=== PATIENT | male | born 1965 | race Caucasian/White ===

== ENCOUNTER 2024-04-19 08:50 | Emergency (ER) | payer OTHER, BC, SELFPAY ==
[2024-04-19] VITALS (47 sets, daily range): BP systolic 111–137; BP diastolic 60–95; PULSE 71–90; RESP 7–23; TEMP 36.4; O2SAT 91–100; BMI 36.6
--- NOTE | 2024-04-19 09:26 | ED_ITS ---
HPI - Dizziness 2 General: Chief Complaint: Dizziness Stated Complaint: dizzy,weakness Time Seen by Provider: 04/19/24 08:55 Source: patient Mode of arrival: ambulatory History of Present Illness: HPI Narrative: 58-year-old male who presents emergency room complaining of dizziness. Here patient is vertiginous-like symptoms worsen by when he moves his head. When initially evaluate the patient he is awake and alert no focal neurologic deficits. No difficulty with speech or swallowing or vision. He is also intermittently having some epistaxis. MD elicited complaint: dizziness Onset (ago): hour(s) (Approximately 10 hours ago) Timing: gradual onset Description: room spinning Context: change in body position Exacerbating factors: change in body position and other (Head movement) Relieving factors: nothing Associated symptoms: Denies change in hearing, chest pain, chills, cough, diaphoresis, ear discharge, ear pressure, fevers/chills, headache(s), malaise, nausea, nasal congestion, palpitations, rash, short of breath, syncope, tinnitus, vomiting or weakness Review of Systems 2 Const: Denies: chills, malaise or diaphoresis ENMT: Denies: ear discharge, change in hearing, tinnitus or nasal congestion Card: Denies: chest pain, palpitations or syncope Resp: Denies: dyspnea GI: Denies: nausea or vomiting : Denies: dysuria, urinary frequency or urinary urgency Musc: Denies: neck pain or back pain Skin/Breast: Denies: rash Neuro: Denies: headache(s) PFSH ED 2 PFSH: Medical History (Updated 04/19/24 @ 14:26 by Lauro Hernandez DO) Obesity (BMI 35.0-39.9 without comorbidity) DM type 2 (diabetes mellitus, type 2) HTN (hypertension) with goal to be determined Eustachian tube dysfunction Family History (Updated 05/02/23 @ 14:07 by Georgina Jackson LPN) Father No problems noted. Mother Diabetes Multiple sclerosis Social History (Updated 05/02/23 @ 14:08 by Georgina Jackson LPN) Smoking and tobacco/nicotine status: former use of tobacco/nicotine Quit status (tobacco/nicotine): has quit using Second hand smoke exposure: No Alcohol intake: current Alcohol intake frequency: holidays/special occasions only Substance/Drug Use: never Physical Exam 2 Const: COMMON NORMALS: no acute distress GENERAL APPEARANCE: cooperative and comfortable ORIENTATION/CONSCIOUSNESS: Yes awake, Yes oriented to person, Yes oriented to place and Yes oriented to time HENMT: COMMON NORMALS: normocephalic, atraumatic and hearing grossly normal bilaterally HEAD & SCALP: normocephalic and atraumatic Resp: COMMON NORMALS: normal respiratory effort, No retractions, No use of accessory muscles and clear to auscultation bilaterally AUSCULTATION: clear to auscultation bilaterally Cardio: COMMON NORMALS: regular rate, regular rhythm and No murmurs present (Cardio) RATE: regular rate RHYTHM: regular rhythm GI: COMMON NORMALS: Soft to palpation and No hepatosplenomegaly present A USCULTATION: Yes normoactive bowel sounds PALPATION: Yes Soft to palpation, No Tenderness to palpation present (GI), No Guarding due to palpation present (GI) and Yes No hepatosplenomegaly present Extremity: COMMON NORMALS: normal to inspection, capillary refill normal, no clubbing, cyanosis or edema, no calf tenderness and no pedal edema Neuro: SENSORIUM/ORIENTATION: Yes oriented to person, Yes oriented to place and Yes oriented to time Skin: COMMON NORMALS: no rashes or lesions noted GENERAL SKIN EXAM: no rashes or lesions noted Course 2 Vital Signs: Vital signs: Vital Signs Temperature 97.6 F 04/19/24 08:54 Pulse Rate 73 04/19/24 13:55 Respiratory Rate 10 L 04/19/24 13:55 Blood Pressure 132/69 04/19/24 13:55 Pulse Oximetry 94 04/19/24 13:55 Oxygen Delivery Me thod Room Air 04/19/24 13:35 MDM - Dizziness Medical Decision Making Patient presents emergency room complaining of dizziness with vertiginous-like symptoms it is worse when he moves his head and better when he holds still. He does have a little bit of nystagmus when he tries to focus on a single point. His neck score was 0. There is a new onset symptom for is also accompanied by some and intermittent epistaxis. He is not on any anticoagulants. When he was coming back from the CT I observed him in the hallway when the nurse turned the corner with the wheelchair to get him into the room it precipitated significant vertiginous symptoms. He had significant improvement after a single milligram of Ativan he is now able to move his head without precipitating much vertiginous-like symptoms. He is feeling much [id number] ambulating without difficulty. Considered the possibility of a posterior stroke but given his resolution of symptoms I do not believe he has had 1 repeated his exam and ambulated he did well. Will discharge patient with Ativan to use as needed.. He did have a single episode of epistaxis while is here but resolved with direct pressure. Will start him on Augmentin 875 twice a day and also topical mupirocin for 5 to 7 days. His blood pressure has been well-controlled. Recommend he follow-up with his primary care doctor symptoms of overt vertigo or his epistaxis recur or persist Medical Records I reviewed the patient's medical records. Lab Data I reviewed the patient's lab results. 04/19/24 09:33 04/19/24 09:[address] 04/19/24 09:34 IMPRESSION: No acute intracranial hemorrhage or mass effect. Head/Neck CTA 04/19/24 11:13 IMPRESSION: No intracranial large vessel arterial stenosis or occlusion. IMPRESSION: No significant cervical arterial stenosis or occlusion. REFERENCES: NASCET CRITERIA. The degree of stenosis in the cervical segment of the internal carotid artery is based on NASCET criteria. Normal is no stenosis. Mild is less than 50% stenosis. Moderate is 50-69% stenosis. Severe is 70% to 99% stenosis. Total occlusion is no detectable patent lumen. Laboratory Results WBC 6.74 10^3/uL (3.29-11.43) 04/19/24 09:33 RBC 5.27 10^6/uL (3.85-5.65) 04/19/24 09:33 Hgb 14.60 g/dL (11.27-16.99) 04/19/24 09: Hct 45.1 % (37-53) 04/19/24 09:33 MCV 85.6 fl (82-101) 04/19/24 09: MCH 27.7 pg (27-33) 04/19/24 09: MCHC 32.4 g/dL (30-55) 04/19/24 09: RDW 12.9 % (12.1-15.1) 04/19/24 09:33 Plt Count 177 10^3/cmm (157-399) 04/19/24 09:33 MPV 9.6 fL (7.4-10.4) 04/19/24 09:33 Neut % (Auto) 75.4 % 04/19/24 09:33 Lymph % (Auto) 18.2 % 04/19/24 09:33 Fannin % (Auto) 4.5 % 04/19/24 09:33 Eos % (Auto) 1.3 % 04/19/24 09:33 Baso % (Auto) 0.3 % 04/19/24 09:33 Neut # (Auto) 5.08 10^3/uL (1.8-7.7) 04/19/24 09:33 Lymph # (Auto) 1.2 10^3/uL (0.8-4.8) 04/19/24 09:33 Fannin # (Auto) 0.3 10^3/uL (0.2-0.9) 04/19/24 09:33 Eos # (Auto) 0.1 10^3/uL (0.0-0.8) 04/19/24 09:33 Baso # (Auto) 0.0 10^3/uL (0.0-0.1) 04/19/24 09:33 Nucleated RBC % (auto) 0 % 04/19/24 09: Nucleated RBCs # 0.0 /100WBC 04/19/24 09:33 PT 11.90 SECONDS (12.1-14.9) L 04/19/24 09:33 INR 0.86 (0.8-1.2) 04/19/24 09:33 APTT 26.4 SECONDS (23.9-36.7) 04/19/24 09:33 Sodium 140 mmol/L (136-145) 04/19/24 09:33 Potassium 4.3 mmol/L (3.5-5.1) 04/19/24 09:33 Chloride 106 mmol/L (98-107) 04/19/24 09:33 Carbon Dioxide 21 mmol/L (22-29) L 04/19/24 09:33 Anion Gap 17.3 (5-19) 04/19/24 09:33 BUN 18 mg/dL (6-20) 04/19/24 09:33 Creatinine 0.8 mg/dL (0.7-1.2) 04/19/24 09:33 GFR Calculation 99.6 mL/min (90-130) 04/19/24 09:33 Glucose 183 mg/dL (65-115) H 04/19/24 09:33 Calculated Osmolality 297 mOsm/kg (285-295) H 04/19/24 09:33 Calcium 8.9 mg/dL (8.5-10.5) 04/19/24 09:33 Total Bilirubin 0.5 mg/dL (0.15-1.2) 04/19/24 09:33 AST 19 U/L (0-40) 04/19/24 09:33 ALT 24 U/L (0-41) 04/19/24 09:33 Alkaline Phosphatase 67 U/L (40-130) 04/19/24 09:33 Total Protein 6.8 g/dL (6.6-8.7) 04/19/24 09:33 Albumin 4.2 g/dL (3.5-5.2) 04/19/24 09:33 Globulin 2.6 g/dL (1.3-4.6) 04/19/24 09:33 All radiology interpretation(s) finalized by discharge Discharge Plan Discharge Patient Disposition: Home Clinical Impression: Labyrinthitis, Epistaxis Condition: Stable Prescriptions: New Ativan 2 mg tablet 2 mg PO Q8H PRN (Reason: vertigo) Qty: 15 0RF mupirocin 2 % ointment 1 applic topical BID Qty: 15 0RF Rx Instructions: Apply to inner nares twice a day for 5 to 7 days amoxicillin-pot clavulanate 875-125 mg tablet 1 tab PO BID Qty: 10 0RF No Action insulin aspart U-100 [Novolog FlexPen U-100 Insulin] 100 unit/mL (3 mL) insulin pen 20 unit SUBCUT BID insulin glargine [Lantus U-100 Insulin] 100 unit/mL solution 20 unit SUBCUT DAILY cholecalciferol (vitamin D3) 75 mcg (3,000 unit) tablet 75 mcg PO DAILY pravastatin 40 mg tablet 40 mg PO DAILY Aspir-81 81 mg Tablet,Delayed Release (Dr/Ec) 81 mg PO DAILY lisinopril 10 mg Tablet 5 mg PO DAILY metformin 500 mg Tablet Extended Release 24 Hr 500 mg PO BID Fish Oil 1,000 mg (120 mg-180 mg) Capsule 2 cap PO BID Jardiance 25 mg Tablet 12.5 mg PO DAILY Discharge Orders: Discharge ED (Routine); Ordered 04/19/24 Ordered By: Lauro Hernandez Discharge Diet: Usual diet Patient Instructions: Opioid Safety, Pain Management Activity Restrictions/Additional Instructions: Thank you for choosing [facility] for your healthcare needs today. It is very important that you follow up as instructed or that you return to the Emergency Department should you have concerns or if your condition changes or worsens in any way. You were seen today with complaints of dizziness.. Your dizziness improved with the medications given CTs of your head and CTA of your head and neck were negative. Recommend using Ativan as needed to help with dizziness. He also complained of some nosebleeds. Coding Level of Care Code ED Development Administrator for Danny Merino
--- NOTE | 2024-04-19 09:34 | CTR_ITS ---
PROCEDURE INFORMATION: Exam: CT Head Without Contrast Exam date and time: 04/19/2024 9:41 AM Age: 58 years old Clinical indication: Dizziness; Additional info: Vertigo TECHNIQUE: Imaging protocol: Computed tomography of the head without contrast. Radiation optimization: All CT scans at this facility use at least one of these dose optimization techniques: automated exposure control; mA and/or kV adjustment per patient size (includes targeted exams where dose is matched to clinical indication); or iterative reconstruction. COMPARISON: No relevant prior studies available. RADIATION DOSE METRICS: Total DLP (mGy-cm): 1113.98 FINDINGS: Brain: No acute intracranial hemorrhage or abnormal intracranial mass effect is identified. Chronic small-vessel ischemic changes are seen in periventricular white matter primarily frontal lobe distribution. No subdural collections are identified. MRI could provide more sensitive detection of acute ischemia if clinically warranted. 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 Possible thin layer of residual intact bone (series 9, image 42). Empty sella is noted. Cerebral ventricles: Size within normal range for age. No midline shift. Paranasal sinuses: See Brain finding. Small mucous retention cyst medial wall of right maxillary sinus.. Mastoid air cells: Visualized portions of mastoid sinuses are not opacified. Bones: Previous posterior right suboccipital craniectomy. Soft tissues: See Brain finding. CT/CT head wo con* [id number] IMPRESSION: No acute intracranial hemorrhage or mass effect.
[2024-04-19 09:43] LABS: Basophils % 0.3 %; Eosinophils # 0.1 10^3/uL (0.0-0.8); Eosinophils % 1.3 %; Hematocrit 45.1 % (37-53); Lymphocytes # 1.2 10^3/uL (0.8-4.8); Lymphocytes % 18.2 %; Mean Corpuscular HGB Conc 32.4 g/dL (30-55); Mean Corpuscular Hemoglobin 27.7 pg (27-33); Mean Corpuscular Volume 85.6 fl (82-101); Mean Platelet Volume 9.6 fL (7.4-10.4); Monocytes # 0.3 10^3/uL (0.2-0.9); Monocytes % 4.5 %; Neutrophils # 5.08 10^3/uL (1.8-7.7); Neutrophils % 75.4 %; Nucleated Red Blood Cells % 0 %; Platelet Count 177 10^3/cmm (157-399); Red Blood Count 5.27 10^6/uL (3.85-5.65); Red Cell Distribution Width 12.9 % (12.1-15.1); White Blood Count 6.74 10^3/uL (3.29-11.43)
[2024-04-19 09:53] LABS: INR 0.86 (0.8-1.2)
[2024-04-19 09:54] LABS: Partial Thromboplastin Time 26.4 SECONDS (23.9-36.7)
[2024-04-19 09:58] LABS: Alanine Aminotransferase 24 U/L (0-41); Albumin Level 4.2 g/dL (3.5-5.2); Alkaline Phosphatase 67 U/L (40-130); Anion Gap 17.3 (5-19); Aspartate Amino Transferase 19 U/L (0-40); Blood Urea Nitrogen 18 mg/dL (6-20); Calcium 8.9 mg/dL (8.5-10.5); Carbon Dioxide 21 mmol/L (22-29); Chloride 106 mmol/L (98-107); Globulin 2.6 g/dL (1.3-4.6); Glomerular Filtration Rate 99.6 mL/min (90-130); Glucose 183 mg/dL (65-115); Osmolality Calculated 297 mOsm/kg (285-295); Potassium 4.3 mmol/L (3.5-5.1); Sodium 140 mmol/L (136-145); Total Bilirubin 0.5 mg/dL (0.15-1.2); Total Protein 6.8 g/dL (6.6-8.7)
--- NOTE | 2024-04-19 11:13 | CTR_ITS ---
PROCEDURE INFORMATION: Exam: CTA Head With Contrast, Arteriography Exam date and time: 04/19/2024 11:38 AM Age: 58 years old Clinical indication: Dizziness and giddiness; Additional info: Possible posterior CVA TECHNIQUE: Imaging protocol: Computed tomographic angiography of the head with contrast. Exam focused on the arteries. 3D rendering (Not supervised by radiologist): MIP and/or 3D reconstructed images were created by the technologist. Radiation optimization: All CT scans at this facility use at least one of these dose optimization techniques: automated exposure control; mA and/or kV adjustment per patient size (includes targeted exams where dose is matched to clinical indication); or iterative reconstruction. Contrast material: OMNIPAQUE 350; Contrast volume: 100 ml; Contrast route: INTRAVENOUS (IV); COMPARISON: CT head wo con* [id number] 04/19/2024 9:41 AM RADIATION DOSE METRICS: Total DLP (mGy-cm): 563.66 FINDINGS: ANTERIOR CIRCULATION: Right internal carotid artery: Mild calcified plaque is seen involving the right cavernous carotid artery. No significant stenosis or aneurysm is seen involving the petrous, cavernous, or supraclinoid right internal caroid artery. Right middle cerebral artery: No occlusion or significant stenosis. No aneurysm. Right anterior cerebral artery: No occlusion or significant stenosis. No aneurysm. Left internal carotid artery: Mild calcified plaque is seen involving the left cavernous carotid artery. No significant stenosis or aneurysm is seen involving the petrous, cavernous, or supraclinoid left internal caroid artery. Left middle cerebral artery: No occlusion or significant stenosis. No aneurysm. Left anterior cerebral artery: No occlusion or significant stenosis. No aneurysm. POSTERIOR CIRCULATION: Right vertebral artery: Intradural right vertebral artery demonstrates no occlusion or significant stenosis. No aneurysm. Left vertebral artery: Intradural left vertebral artery demonstrates no occlusion or significant stenosis. No aneurysm. Basilar artery: No occlusion or significant stenosis. No aneurysm. Right posterior cerebral artery: No occlusion or significant stenosis. No aneurysm. Left posterior cerebral artery: No occlusion or significant stenosis. No aneurysm. Brain: No acute confluent lobar infarct, acute parenchymal hemorrhage or mass effect. Cerebral ventricles: No ventriculomegaly. Bones/joints: Right suboccipital craniectomy. Recommend correlation with surgical history. Soft tissues: Visualized soft tissues are unremarkable. PROCEDURE INFORMATION: Exam: CTA Neck With Contrast Exam date and time: 04/19/2024 11:38 AM Age: 58 years old Clinical indication: Dizziness and giddiness; Additional info: Possible posterior CVA TECHNIQUE: Imaging protocol: Computed tomographic angiography of the neck with contrast. Exam focused on the cervical segments of the vasculature. 3D rendering (Not supervised by radiologist): MIP and/or 3D reconstructed images were created by the technologist. Radiation optimization: All CT scans at this facility use at least one of these dose optimization techniques: automated exposure control; mA and/or kV adjustment per patient size (includes targeted exams where dose is matched to clinical indication); or iterative reconstruction. Contrast material: OMNIPAQUE 350; Contrast volume: 100 ml; Contrast route: INTRAVENOUS (IV); COMPARISON: CT head wo con* [id number] 04/19/2024 9:41 AM RADIATION DOSE METRICS: Total DLP (mGy-cm): 563.66 FINDINGS: Right common carotid artery: No stenosis. No dissection or occlusion. Right internal carotid artery: Mild calcified plaque is seen involving the right carotid bulb. No significant stenosis seen by NASCET criteria. No dissection or occlusion. Right external carotid artery: No occlusion or stenosis of the origin. Left common carotid artery: No stenosis. No dissection or occlusion. Left internal carotid artery: Mild calcified and noncalcified plaque is seen involving the left carotid bulb. Small plaque ulceration noted. No significant stenosis seen by NASCET criteria. No dissection or occlusion. Left external carotid artery: No occlusion or stenosis of the origin. Right vertebral artery: No cervical vertebral artery stenosis. No dissection or occlusion. Left vertebral artery: No cervical vertebral artery stenosis. No dissection or occlusion. Soft tissues: Visualized soft tissues of the neck are unremarkable. Bones/joints: Mild degenerative changes at C5-C6 and C6-C7. CT/CT angio headneck* [id number] IMPRESSION: No intracranial large vessel arterial stenosis or occlusion. IMPRESSION: No significant cervical arterial stenosis or occlusion. REFERENCES: NASCET CRITERIA. The degree of stenosis in the cervical segment of the internal carotid artery is based on NASCET criteria. Normal is no stenosis. Mild is less than 50% stenosis. Moderate is 50-69% stenosis. Severe is 70% to 99% stenosis. Total occlusion is no detectable patent lumen.
[2024-04-19] MEDS: LORazepam 2 mg/mL INJ 1 mL 1 MG IVP (11:30)
[2024-04-19] MEDS: iohexol 350 mg/mL 500 mL Btl (per mL) IV (11:42)
--- NOTE | 2024-04-19 12:38 | PC.PHAR ---
PT IS [facility] FOR MED LIST04/19/24 12:38PM
== END 2024-04-19 14:40 | disposition home or self-care (01) ==
PROVIDERS: Emergency Provider Family Medicine
DX: H83.09 Labyrinthitis, unspecified ear (principal); R04.0 Epistaxis; Z79.82 Long term (current) use of aspirin; Z79.4 Long term (current) use of insulin; Z79.84 Long term (current) use of oral hypoglycemic drugs; Z87.891 Personal history of nicotine dependence; E11.9 Type 2 diabetes mellitus without complications; I10 Essential (primary) hypertension
CPT/HCPCS: 70450; 70496; 70498; 80053; 85025; 85610; 85730; 96374; 99285; J2060; Q9967